=== PATIENT | male | born 1960 | race Caucasian/White ===

== ENCOUNTER 2021-10-18 16:00 | Emergency (ER) | payer OTHER ==
[2021-10-18 17:07] LABS: BASOPHIL 0.5 % (0-2); EOSINOPHIL 2.3 % (0-5); HCT 43.9 % (42.0-52.0); LYMPHOCYTE 25.4 % (15-48); MCH 30.7 pg (25.0-31.0); MCHC 34.2 g/dL (32.0-36.0); MONOCYTE 9.1 % (0-12); MPV 12.2 fL (6.0-9.5); NEUTROPHIL 62.2 % (41-80); NRBC 0; PLT 163 K/uL (150-400); RBC 4.88 M/uL (4.70-6.00); RDW 12.9 % (11.5-14.0); WBC 6.1 K/uL (4.0-10.5)
[2021-10-18 17:08] LABS: ALBUMIN 4.2 g/dL (3.4-5.0); BILIRUBIN - TOTAL 0.6 mg/dL (0.2-1.0); BUN/CREAT RATIO (CALC) 8.7 RATIO; CREATININE 1.5 mg/dL (0.67-1.17); GLOBULIN (CALCULATION) 3.3 g/dL; POTASSIUM 4.4 mmol/L (3.5-5.1); TOTAL PROTEIN 7.5 g/dL (6.4-8.2)
== END 2021-10-18 18:29 | disposition home or self-care (01) ==
LOC: FER 16:00
PROVIDERS: Emergency Medicine
DX: R00.2 Palpitations (principal)
CPT/HCPCS: 36415; 71045; 80053; 84484; 85025; 93005